=== PATIENT | female | born 1935 | race Caucasian/White ===

== ENCOUNTER 2017-03-08 08:23 | Emergency (ER) | payer MEDICARE ==
[~2017-03-08] VITALS: Ht 162.6 cm; Wt 58.6 kg
[~2017-03-08 08:23] MED LIST: ASPIRIN 81MG TA81 MG PO; LISINOPRIL/HCTZ1 TA3 PO; LISINOPRIL20 MG PO; PRAVASTATIN SOD40 MG PO; SULFAMETHOXAZOL1 TA6 PO; ULTRACET 325 MG1 TAB PO
[2017-03-08 08:49] VITALS: BP 108/69
--- OUTSIDE RECORDS SUMMARY | 2017-03-08 08:49 | External Medical Summary Rpt ---
Author Author CORA Crain, [employer] C[employer] Organization [employer] Address Unknown Phone Unavailable
--- OUTSIDE RECORDS SUMMARY | 2017-03-08 08:49 | External Medical Summary Rpt ---
Demographics Preferred Language Mongolian Marital Status Unknown Islam Affiliation Unknown Race Unknown Ethnic Group Unknown Author Author , CORA SHEPHERD Address Unknown Phone Immunization Unable to retrieve immunization data due to connection failure with Immunization Registry. Please try again later.
--- OUTSIDE RECORDS SUMMARY | 2017-03-08 08:49 | External Medical Summary Rpt ---
Demographics Preferred Language Latvian Marital Status Unknown Congregational Affiliation Unknown Race Unknown Ethnic Group Unknown Author Author , CORA SHEPHERD Address Unknown Phone Immunization Unable to retrieve immunization data due to connection failure with Immunization Registry. Please try again later.
--- OUTSIDE RECORDS SUMMARY | 2017-03-08 08:49 | External Medical Summary Rpt ---
Author Author CORA Address Unknown Phone [email or web address] Purpose Continuity of Care Document - through 2016 Problems Code Diagnosis DOS Provider Status [id number] W19.XXXA UNSPECIFIED FALL, INITIAL ENCOUNTER
--- OUTSIDE RECORDS SUMMARY | 2017-03-08 08:49 | External Medical Summary Rpt ---
Author Author CORA Address Unknown Phone [email or web address] Purpose Continuity of Care Document - through 2016 Problems Code Diagnosis DOS Provider Status [id number] W19.XXXA UNSPECIFIED FALL, INITIAL ENCOUNTER
== END 2017-03-08 08:51 | disposition home or self-care (01) ==
LOC: ER 08:23 → ERCL 08:48
DX: S01.81XD Laceration without foreign body of other part of head, subsequent encounter (principal)

== ENCOUNTER → 2017-03-19 | Outpatient (CLI) | payer MEDICARE ==
[2017-03-19 16:30] LABS: BUN 17 mg/dL (7-18)
[2017-03-19 16:34] LABS: HEMOGLOBIN 11.3 g/dL (12.2-16.2); LYMPH # 0.9 K/mm3 (0.7-4.5); LYMPH % 21.9 % (10-50.0)
[2017-03-19 16:37] LABS: GFR (ESTIMATED) 33 ML/MIN (59-)
== END ==
LOC: LAB 12:27
PROVIDERS: Physician Assistant
DX: I10 Essential (primary) hypertension (principal); E03.9 Hypothyroidism, unspecified

== ENCOUNTER 2017-04-18 07:33 | Day surgery (SDC) | payer MEDICARE ==
[2017-04-18 08:15] LABS: HEMOGLOBIN 11.5 g/dL (12.2-16.2); LYMPH # 1.1 K/mm3 (0.7-4.5); LYMPH % 23.4 % (10-50.0)
[2017-04-18 08:21] LABS: BUN 33 mg/dL (7-18)
[2017-04-18 08:22] LABS: GFR (ESTIMATED) 33 ML/MIN (59-)
--- NOTE | 2017-04-18 12:39 | RADIOLOGY REPORT PS360 ---
CARDIAC CATHETERIZATION DATE OF CATHETERIZATION:04/18/2017 10:39 AM PROCEDURES: 1. Left heart catheterization 2. Left ventriculogram 3. Selective coronary angiogram 4. Catheter placement in the left carotid artery 5. Left internal carotid artery angiogram 6. Left intracerebral carotid artery angiogram 7. Left vertebral artery angiogram INDICATION FOR TEST: 1. Abnormal Myoview 2. Severe carotid artery stenosis 3. Preoperative evaluation for possible carotid endarterectomy 4. History cerebrovascular accident Informed consent was obtained prior to the procedure. COMPLICATIONS: None ESTIMATED BLOOD LOSS: Less than 10 ml. TECHNIQUE: One percent lidocaine was used to anesthetize the right groin. The right femoral artery was accessed via the Seldinger technique. A 4-English sheath was placed in the right femoral artery. Over 3 J-wire a JL 4 JR4 catheter were used to perform left heart catheterization left ventriculogram and selective coronary angiography. The JR4 catheter was used to perform nonselective left vertebral artery angiography and selective left carotid artery angiogram with intracerebral angiography. Because the carotid ultrasound demonstrated mild right carotid artery disease a 4 vessel angiogram was not performed. At the end of the procedure the apparatus was removed the patient transferred the postop holding area in stable condition for sheath removal ANGIOGRAPHIC RESULTS: 1. The left main artery normal 2. The left anterior descending artery proximally has 30% concentric stenosis. At the bifurcation of the large first diagonal artery is a 60-70% mostly eccentric stenosis is present in the proximal LAD. Immediately distal to this first diagonal artery is a 60% stenosis with a 60% stenosis in the ostium of the large left first diagonal artery. Remaining LAD is normal 3. The circumflex artery gives rise to a large first obtuse marginal artery and has proximal 20% with 1 minute vessel 30% nonflow limiting stenosis 4. The right coronary artery is a large dominant vessel and angiographically normal 5. The VALDES ventriculogram reveals normal 65% 6. The left ventricular end-diastolic pressure less than 10 mmHg 7. There is no transaortic gradient upon pullback with a JR4 catheter 8. The left vertebral artery is a large dominant vessel and normal 9. The left common carotid arteries normal 10. Left internal carotid artery has a smooth proximal 70% stenosis 11. The intracerebral vasculature is free of significant atherosclerotic plaque or aneurysmal dilatation IMPRESSION: 1. Coronary artery disease as described above 2. Moderate to Severe disease in the proximal LAD diagonal artery as described above 3. Normal ejection fraction 4. No transaortic gradient upon pullback with a 4 English JR 4 catheter 5. Moderate to severe left internal carotid artery stenosis PLAN: 1. I would recommend medical management for this patient 2. There is angiographic criteria to stent the proximal LAD and diagonal artery and a bifurcating manner however on last clinic visit patient was not experiencing any recurrent angina. Given the age of the patient and complex nature of the bifurcating lesion I believe she will do well with medical management. Should she develop recalcitrant angina pectoris refractory to standard medical therapy and a bifurcating stent is certainly a possibility. 3. I would also recommend medical management for her carotid artery disease. I would recommend high intensity statin therapy to achieve an LDL less than 60 as well as baby aspirin daily. Control of hypertension is also recommended 4. There is no study that demonstrates asymptomatic female patients benefit from prophylactic carotid endarterectomy. Furthermore the nature of her stenosis is smooth and does not appear to have the angiographic criteria for an embolic event. 5. Standard therapy for ischemic heart disease
[2017-04-18 14:30] VITALS: BP 136/66
== END 2017-04-18 14:41 | disposition home or self-care (01) ==
LOC: CATHLAB 07:33
PROVIDERS: Internal Medicine
PROC: B2151ZZ Fluoroscopy of Left Heart using Low Osmolar Contrast (ICD-10-PCS; 2017-04-18)
PROC: B3171ZZ Fluoroscopy of Left Internal Carotid Artery using Low Osmolar Contrast (ICD-10-PCS; 2017-04-18)
PROC: B31F1ZZ Fluoroscopy of Left Vertebral Artery using Low Osmolar Contrast (ICD-10-PCS; 2017-04-18)
PROC: 4A023N7 Measurement of Cardiac Sampling and Pressure, Left Heart, Percutaneous Approach (ICD-10-PCS; principal; 2017-04-18 11:00)
PROC: B2111ZZ Fluoroscopy of Multiple Coronary Arteries using Low Osmolar Contrast (ICD-10-PCS; 2017-04-18 11:00)
DX: I25.10 Atherosclerotic heart disease of native coronary artery without angina pectoris (principal); R94.39 Abnormal result of other cardiovascular function study; I65.22 Occlusion and stenosis of left carotid artery; Z86.73 Personal history of transient ischemic attack (TIA), and cerebral infarction without residual deficits; I10 Essential (primary) hypertension
CPT/HCPCS: C1725; C1769; J1644; Q9967